=== PATIENT | male | born 1980 | race Caucasian/White ===

== ENCOUNTER 2023-01-28 14:57 | Emergency (ER) | payer OTHER, BC, MEDICAID, SELFPAY ==
[2023-01-28 15:30] VITALS: BP 126/77; PULSE 72; RESP 18; TEMP 36.7; O2SAT 97
--- NOTE | 2023-01-28 16:28 | ED_ITS ---
Documented by User: PAUL Milian 01/29/23 09:07 HPI - Dental/Oral General: Chief complaint: Dental/Oral Stated complaint: mouth abscess Time Seen by Provider: 01/28/23 16:28 Source: patient Mode of arrival: ambulatory Limitations: no limitations History of Present Illness: Patient is a nice 42-year-old male who presents to ED today for concerns of a dental abscess. Patient states he began having left lower dental pain a few days ago but started noticing swelling yesterday evening and into today. He was reportedly seen at [place] where he was assessed by a dentist. Dentist was concerned about deep space infection in his neck and patient was thus referred t o the emergency department for further evaluation. Patient states he is not able to eat food secondary to pain and swelling but is able to hold liquids down. He is controlling his secretions. He does complain of some muffled voice and difficulty breathing. Onset (ago): day(s) Relieving factors: nothing Associated symptoms: Reports other (facial/neck swelling); Denies fever(s) Treatment prior to arrival: none Review of Systems Const: Denies: fever(s), chills, body aches, fatigue or malaise ENMT: Reports: dental pain and sinus pain; Denies: nasal discharge or nasal congestion Card: Denies: chest pain Resp: Denies: dyspnea GI: Denies: abdominal pain Musc: Reports: neck pain; Denies: back pain, extremity pain, extremity swelling, joint pain or joint swelling Neuro: Denies: headache(s) or dizziness Physical Exam Const: COMMON NORMALS: no acute distress, average body habitus, patient oriented x3, no limitations, healthy appearing, alert and well nourished GENERAL APPEARANCE: cooperative ORIENTATION/CONSCIOUSNESS: Yes awake, Yes oriented to person, Yes oriented to place and Yes oriented to time HENMT: COMMON NORMALS: normocephalic, atraumatic and Normal external nose present HEAD & SCALP: normal to inspection, normocephalic and atraumatic FACE & SINUS: sinuses nontender and edema; no erythema and no fluctuance FACE & SINUS IMAGES: 1. edema noted NOSE: Normal external nose present MOUTH: Normal oral and palatal mucosa present, lip normal, tongue normal and muffled voice; no drooling TEETH & GINGIVA: Yes poor dentition THROAT: posterior oropharynx normal, tonsils normal and uvula midline Eye: GENERAL EYE: appearance normal, both eyes and all related structures Neck/C-Spine: COMMON NORMALS: no lymphadenopathy GENERAL: Yes anterior neck swelling (left) and Yes submandibular swelling (left) CERVICAL SPINE: Yes cervical ROM normal Resp: COMMON NORMALS: normal respiratory effort and clear to auscultation bilaterally AUSCULTATION: clear to auscultation bilaterally Cardio: COMMON NORMALS: regular rate and regular rhythm RATE: regular rate RHYTHM: regular rhythm Neuro: ANASTASIIA COMA SCALE: document GCS findings Anastasiia coma scale eye opening: Spontaneous Anastasiia coma scale verbal response: Orientated Anastasiia coma scale motor response: Obey commands Anastasiia coma scale total score: 15 COMMON NORMALS: patient oriented x3 SENSORIUM/ORIENTATION: Yes alert, Yes oriented to person, Yes oriented to place and Yes oriented to time Skin: COMMON NORMALS: no rashes or lesions noted GENERAL SKIN EXAM: no rashes or lesions noted Course ED course: Care is being transferred to Dr. Dixon as my shift is ending. He is receiving blood work/CT imaging for evaluation of a possible deep space neck infection/dental abscess. ES Vital Signs: Vital signs: Vital Signs Temperature 98.0 F 01/28/23 15:30 Pulse Rate 72 01/28/23 19:14 Respiratory Rate 18 01/28/23 15:30 Blood Pressure 139/90 01/28/23 19:14 Pulse Oximetry 98 01/28/23 19:14 Oxygen Delivery Me thod Room Air 01/28/23 19:13 MDM - Dental/Oral Lab Data 01/28/23 16:55 01/28/23 17:[address] 01/28/23 16:33 IMPRESSION: 1. No periodontal disease or periodontal abscess identified. 2. Prominent sublingual lymph nodes which are thought to be reactive in nature. Laboratory Results WBC 14.13 10^3/uL (3.29-11.43) H 01/28/23 16:55 RBC 5.35 10^6/uL (3.85-5.65) 01/28/23 16:55 Hgb 16.90 g/dL (11.27-16.99) 01/28/23 16:55 Hct 50.1 % (37-53) 01/28/23 16:55 MCV 93.6 fl (82-101) 01/28/23 16:55 MCH 31.6 pg (27-33) 01/28/23 16:55 MCHC 33.7 g/dL (30-55) 01/28/23 16:55 RDW 13.4 % (12.1-15.1) 01/28/23 16:55 Plt Count 272 10^3/cmm (157-399) 01/28/23 16:55 MPV 11.8 fL (7.4-10.4) H 01/28/23 16:55 Neut % (Auto) 73.6 % 01/28/23 16:55 Lymph % (Auto) 16.5 % 01/28/23 16:55 [place] % (Auto) 9.2 % 01/28/23 16:55 Eos % (Auto) 0.1 % 01/28/23 16:55 Baso % (Auto) 0.2 % 01/28/23 16:55 Neut # (Auto) 10.40 10^3/uL (1.8-7.7) H 01/28/23 16:55 Lymph # (Auto) 2.3 10^3/uL (0.8-4.8) 01/28/23 16:55 [place] # (Auto) 1.3 10^3/uL (0.2-0.9) H 01/28/23 16:55 Eos # (Auto) 0.0 10^3/uL (0.0-0.8) 01/28/23 16:55 Baso # (Auto) 0.0 10^3/uL (0.0-0.1) 01/28/23 16:55 Nucleated RBC % (auto) 0 % 01/28/23 16:55 Nucleated RBCs # 0.0 /100WBC 01/28/23 16:55 Sodium 139 mmol/L (136-145) 01/28/23 17:53 Potassium 3.4 mmol/L (3.5-5.1) L 01/28/23 17:53 Chloride 107 mmol/L (98-107) 01/28/23 17:53 Carbon Dioxide 19 mmol/L (22-29) L 01/28/23 17:53 Anion Gap 16.4 (5-19) 01/28/23 17:53 BUN 11 mg/dL (6-20) 01/28/23 17:53 Creatinine 0.9 mg/dL (0.7-1.2) 01/28/23 17:53 GFR Calculation 92.1 mL/min (90-130) 01/28/23 17:53 Glucose 88 mg/dL (65-115) 01/28/23 17:53 Calculated Osmolality 287 mOsm/kg (285-295) 01/28/23 17:53 Calcium 9.0 mg/dL (8.5-10.5) 01/28/23 17:53 Total Bilirubin 0.4 mg/dL (0.15-1.2) 01/28/23 17:53 AST 30 U/L (0-40) 01/28/23 17:53 ALT 38 U/L (0-41) 01/28/23 17:53 Alkaline Phosphatase 77 U/L (40-130) 01/28/23 17:53 Total Protein 7.2 g/dL (6.6-8.7) 01/28/23 17:53 Albumin 3.9 g/dL (3.5-5.2) 01/28/23 17:53 Globulin 3.3 g/dL (1.3-4.6) 01/28/23 17:53 Discharge Plan Discharge Patient Disposition: Home Clinical Impression: Acute lymphadenitis, Dental infection Condition: Stable Prescriptions: New amoxicillin-pot clavulanate 875-125 mg tablet 1 tab PO Q12H Qty: 20 0RF meloxicam 15 mg tablet 15 mg PO DAILY Qty: 10 0RF prednisone 50 mg tablet 50 mg PO DAILY 5 Days Qty: 5 0RF Discharge Orders: Discharge ED (Routine); Ordered 01/28/23 Ordered By: Rich Dixon Patient Instructions: Adenitis (ED) Activity Restrictions/Additional Instructions: Please take all your medicine including your antibiotics, steroids, pain medicine as directed. Please follow-up with your dentist in approximately 10 to 14 days as well as your family practice doctor in the next 7 to 10 days for for further evaluation and treatment and definitive care for your teeth. Coding Level of Care Code ED Plate Finisher for Chg Fwd Documented by User: Rich Dixon DO 01/28/23 18:50 HPI - Dental/Oral General: Chief complaint: Dental/Oral Stated complaint: mouth abscess Time Seen by Provider: 01/28/23 16:28 Physical Exam HENMT: FACE & SINUS IMAGES: 1. edema noted Neuro: ANASTASIIA COMA SCALE: document GCS findings [place] coma scale total score: 15 Course Vital Signs: Vital signs: Vital Signs Temperature 98.0 F 01/28/23 15:30 Pulse Rate 72 01/28/23 19:14 Respiratory Rate 18 01/28/23 15:30 Blood Pressure 139/90 01/28/23 19:14 Pulse Oximetry 98 01/28/23 19:14 Oxygen Delivery Mi thod Room Air 01/28/23 19:13 MDM - Dental/Oral Medical Decision Making Patient was transferred over to pa at shift change, lab work was reviewed we are waiting on CT scan. CT scan finally came back that showed no abscess identified., Prominent sublingual lymph node thought to be reactive. Patient received his dose of Unasyn. We will give him 125 mg Solu-Medrol to help with the swelling and Toradol 30 mg to help with the pain. Patient will be discharged home on Augmentin and meloxicam. Patient should follow back up with his dentist in approximately 10 days for definitive care of his teeth. Patient should also follow-up with his PCP in the next 7 to 10 days for further evaluation and treatment. Differential Diagnosis Likely gingival abscess, dental caries and dental abscess; Unlikely toothache, fracture of tooth or aphthous ulcer Medical Records I reviewed the patient's medical records. Lab Data 01/28/23 16:55 01/28/23 17:[address] 01/28/23 16:33 IMPRESSION: 1. No periodontal disease or periodontal abscess identified. 2. Prominent sublingual lymph nodes which are thought to be reactive in nature. Laboratory Results WBC 14.13 10^3/uL (3.29-11.43) H 01/28/23 16:55 RBC 5.35 10^6/uL (3.85-5.65) 01/28/23 16:55 Hgb 16.90 g/dL (11.27-16.99) 01/28/23 16:55 Hct 50.1 % (37-53) 01/28/23 16:55 MCV 93.6 fl (82-101) 01/28/23 16:55 MCH 31.6 pg (27-33) 01/28/23 16:55 MCHC 33.7 g/dL (30-55) 01/28/23 16:55 RDW 13.4 % (12.1-15.1) 01/28/23 16:55 Plt Count 272 10^3/cmm (157-399) 01/28/23 16:55 MPV 11.8 fL (7.4-10.4) H 01/28/23 16:55 Neut % (Auto) 73.6 % 01/28/23 16:55 Lymph % (Auto) 16.5 % 01/28/23 16:55 [place] % (Auto) 9.2 % 01/28/23 16:55 Eos % (Auto) 0.1 % 01/28/23 16:55 Baso % (Auto) 0.2 % 01/28/23 16:55 Neut # (Auto) 10.40 10^3/uL (1.8-7.7) H 01/28/23 16:55 Lymph # (Auto) 2.3 10^3/uL (0.8-4.8) 01/28/23 16:55 [place] # (Auto) 1.3 10^3/uL (0.2-0.9) H 01/28/23 16:55 Eos # (Auto) 0.0 10^3/uL (0.0-0.8) 01/28/23 16:55 Baso # (Auto) 0.0 10^3/uL (0.0-0.1) 01/28/23 16:55 Nucleated RBC % (auto) 0 % 01/28/23 16:55 Nucleated RBCs # 0.0 /100WBC 01/28/23 16:55 Sodium 139 mmol/L (136-145) 01/28/23 17:53 Potassium 3.4 mmol/L (3.5-5.1) L 01/28/23 17:53 Chloride 107 mmol/L (98-107) 01/28/23 17:53 Carbon Dioxide 19 mmol/L (22-29) L 01/28/23 17:53 Anion Gap 16.4 (5-19) 01/28/23 17:53 BUN 11 mg/dL (6-20) 01/28/23 17:53 Creatinine 0.9 mg/dL (0.7-1.2) 01/28/23 17:53 GFR Calculation 92.1 mL/min (90-130) 01/28/23 17:53 Glucose 88 mg/dL (65-115) 01/28/23 17:53 Calculated Osmolality 287 mOsm/kg (285-295) 01/28/23 17:53 Calcium 9.0 mg/dL (8.5-10.5) 01/28/23 17:53 Total Bilirubin 0.4 mg/dL (0.15-1.2) 01/28/23 17:53 AST 30 U/L (0-40) 01/28/23 17:53 ALT 38 U/L (0-41) 01/28/23 17:53 Alkaline Phosphatase 77 U/L (40-130) 01/28/23 17:53 Total Protein 7.2 g/dL (6.6-8.7) 01/28/23 17:53 Albumin 3.9 g/dL (3.5-5.2) 01/28/23 17:53 Globulin 3.3 g/dL (1.3-4.6) 01/28/23 17:53 All radiology interpretation(s) finalized by discharge Discharge Plan Discharge Patient Disposition: Home Clinical Impression: Acute lymphadenitis, Dental infection Condition: Stable Prescriptions: New amoxicillin-pot clavulanate 875-125 mg tablet 1 tab PO Q12H Qty: 20 0RF meloxicam 15 mg tablet 15 mg PO DAILY Qty: 10 0RF prednisone 50 mg tablet 50 mg PO DAILY 5 Days Qty: 5 0RF Discharge Orders: Discharge ED (Routine); Ordered 01/28/23 Ordered By: Rich Dixon Patient Instructions: Adenitis (ED) Activity Restrictions/Additional Instructions: Please take all your medicine including your antibiotics, steroids, pain medicine as directed. Please follow-up with your dentist in approximately 10 to 14 days as well as your family practice doctor in the next 7 to 10 days for for further evaluation and treatment and definitive care for your teeth. Coding Level of Care Code ED Plate Finisher for Leonor Chung
--- NOTE | 2023-01-28 16:33 | CTR_ITS ---
PROCEDURE INFORMATION: Exam: CT Neck With Contrast Exam date and time: 01/28/2023 6:07 PM Age: 42 years old Clinical indication: Throat pain; Additional info: Swelling/dysphagia/possible dental abscess, scan up to mandibular/sublingual tissues TECHNIQUE: Imaging protocol: Computed tomography of the neck with contrast. Radiation optimization: All CT scans at this facility use at least one of these dose optimization techniques: automated exposure control; mA and/or kV adjustment per patient size (includes targeted exams where dose is matched to clinical indication); or iterative reconstruction. Contrast material: OMNI 350; Contrast volume: 100 ml; Contrast route: INTRAVENOUS (IV); REPORTING DATA: Count of CT and Cardiac NM exams in prior 12 months: This patient has received 0 known CTs and 0 known cardiac nuclear medicine studies in the 12 months prior to the current study. COMPARISON: No relevant prior studies available. RADIATION DOSE METRICS: Total DLP (mGy-cm): 214 FINDINGS: Dental: No periodontal disease or periodontal abscess identified. Pharynx: Unremarkable. No significant tonsillar enlargement. Larynx: Unremarkable. Epiglottis is normal. Prevertebral and retropharyngeal spaces: Unremarkable. Salivary glands: Asymmetry of the submandibular glands with the left gland larger than the right but no mass or abscess identified. Thyroid: Normal. No enlarged or calcified nodules. Lymph nodes: Prominent sublingual lymph nodes which are thought to be reactive in nature. Multiple prominent left cervical lymph nodes measuring up to 12 mm in short axis which are thought to be reactive in nature. Trachea: Visualized trachea is unremarkable. Lungs: Unremarkable as visualized. Bones/joints: Prominent reversal of the normal lordotic curvature of the cervical spine. 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 Dextroscoliosis of the cervical spine. 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 Soft tissues: Unremarkable. No significant soft tissue swelling. CT/CT neck w con* [id number] IMPRESSION: 1. No periodontal disease or periodontal abscess identified. 2. Prominent sublingual lymph nodes which are thought to be reactive in nature.
[2023-01-28 17:26] LABS: Basophils % 0.2 %; Eosinophils % 0.1 %; Hematocrit 50.1 % (37-53); Lymphocytes # 2.3 10^3/uL (0.8-4.8); Lymphocytes % 16.5 %; Mean Corpuscular HGB Conc 33.7 g/dL (30-55); Mean Corpuscular Hemoglobin 31.6 pg (27-33); Mean Corpuscular Volume 93.6 fl (82-101); Mean Platelet Volume 11.8 fL (7.4-10.4); Monocytes # 1.3 10^3/uL (0.2-0.9); Monocytes % 9.2 %; Neutrophils % 73.6 %; Nucleated Red Blood Cells % 0 %; Platelet Count 272 10^3/cmm (157-399); Red Blood Count 5.35 10^6/uL (3.85-5.65); Red Cell Distribution Width 13.4 % (12.1-15.1); White Blood Count 14.13 10^3/uL (3.29-11.43)
[2023-01-28] MEDS: ampicillin-sulbactam 1.5 GM in sodium chloride 0.9% (plus) 50 ML IV (17:47)
[2023-01-28] MEDS: iohexol 350 mg/mL 500 mL Btl (per mL) IV (18:00)
[2023-01-28 18:21] LABS: Alanine Aminotransferase 38 U/L (0-41); Albumin Level 3.9 g/dL (3.5-5.2); Alkaline Phosphatase 77 U/L (40-130); Anion Gap 16.4 (5-19); Aspartate Amino Transferase 30 U/L (0-40); Blood Urea Nitrogen 11 mg/dL (6-20); Carbon Dioxide 19 mmol/L (22-29); Chloride 107 mmol/L (98-107); Globulin 3.3 g/dL (1.3-4.6); Glomerular Filtration Rate 92.1 mL/min (90-130); Glucose 88 mg/dL (65-115); Osmolality Calculated 287 mOsm/kg (285-295); Potassium 3.4 mmol/L (3.5-5.1); Sodium 139 mmol/L (136-145); Total Bilirubin 0.4 mg/dL (0.15-1.2); Total Protein 7.2 g/dL (6.6-8.7)
[2023-01-28] MEDS: ketorolac 30 mg/mL INJ IVP (19:05)
[2023-01-28] MEDS: methylPREDNISolone sod succ 125 MG in water for injection-sterile 2 ML 24 MG IVP (19:05)
[2023-01-28 19:13] VITALS: BP 139/90; PULSE 75; O2SAT 98
[2023-01-28 19:14] VITALS: BP 139/90; PULSE 72; O2SAT 98
== END 2023-01-28 19:20 | disposition home or self-care (01) ==
PROVIDERS: Emergency Provider Physician Assistant
DX: K04.7 Periapical abscess without sinus (principal); L04.9 Acute lymphadenitis, unspecified
CPT/HCPCS: 36415; 70491; 80053; 85025; 87040; 99285; J0295; J1885; J2930; Q9967